=== PATIENT | female | born 1955 | race Caucasian/White ===

== ENCOUNTER → 2017-01-07 | Outpatient (CLI) | payer BC ==
[~2017-01-07] MED LIST: ALPR0.5T3 PO; BUPR15TA PO; IBUP-1114 PO; IMOD2TAB16 PO; LORA10TA2 PO; METF1000 PO; MULT1TAB10 PO
[2017-01-07 10:51] LABS: MEAN CORPUSCULAR HEMOGLOBIN 30.9 pg (27.0-33.0); MEAN CORPUSCULAR HGB CONC 32.6 g/dl (32.0-36.5); MEAN CORPUSCULAR VOLUME 94.6 fl (80.0-96.0); RED CELL DISTRIBUTION WIDTH 12.5 % (11.5-14.5); WHITE BLOOD COUNT 12.4 K/mm3 (4.0-10.0)
[2017-01-07 10:55] LABS: CALCIUM OXALATE CRYSTALS LARGE
[2017-01-07 10:56] LABS: INR 0.82
--- NOTE | 2017-01-07 10:59 | REP ---
Clinical: History of anxiety and diabetes with chest pain . Comparison: None . Technique: PA and lateral. Findings: The mediastinum and cardiac silhouette are normal. The lung chandler are clear and without acute consolidation, effusion, or pneumothorax. The skeletal structures are intact and normal. Impression: 1. No acute cardiopulmonary process. Signed by Asif Yanes MD 01/07/2017 10:50 A
[2017-01-07 11:14] LABS: ALBUMIN 3.7 GM/DL (3.2-5.2); ALBUMIN/GLOBULIN RATIO 1.06 (1.00-1.93); ALKALINE PHOSPHATASE 372 U/L (45-117); ALT/SGPT 32 U/L (12-78); ANION GAP 9 MEQ/L (8-16); AST/SGOT 18 U/L (15-37); BILIRUBIN,TOTAL 0.2 MG/DL (0.2-1.0); BLOOD UREA NITROGEN 17 MG/DL (7-18); CARBON DIOXIDE LEVEL 25 MEQ/L (21-32); CHLORIDE LEVEL 109 MEQ/L (98-107); CREATININE FOR GFR 0.64 MG/DL (0.55-1.02); GLOMERULAR FILTRATION RATE > 60.0 (>45); GLUCOSE, FASTING 111 MG/DL (80-110); POTASSIUM SERUM 4.3 MEQ/L (3.5-5.1); SODIUM LEVEL 143 MEQ/L (136-145); TOTAL PROTEIN 7.2 GM/DL (6.4-8.2)
--- NOTE | 2017-01-07 17:59 | ECGEPIP ---
Stationary ECG Study [facility] Test Date: 2017-01-07 Pat Name: MARY HICKEY Department: Room: - Gender: F Subscription Agent: : [id number] Requested By: Kuldip Vail Order Number: [id number] Reading MD: Stanislav Gamboa Measurements Intervals [place] Rate: 69 P: 19 ME: 167 QRS: -5 QRSD: 120 T: 59 QT: 406 QTc: 438 Interpretive Statements Normal sinus rhythm Isolated PVCs Low limb voltage Nonspecific ST/T-wave abnormalities. No prior tracing for comparison Clinical correlation advised Electronically Signed On 01-07-2017 17:59:14 EST by Stanislav Gamboa
== END ==
LOC: M ADMPAT 09:17
PROVIDERS: ATTEND Orthopaedic Surgery
DX: M16.11 Unilateral primary osteoarthritis, right hip (principal); E11.9 Type 2 diabetes mellitus without complications; F41.9 Anxiety disorder, unspecified; K52.9 Noninfective gastroenteritis and colitis, unspecified

== ENCOUNTER 2017-01-21 06:23 | Inpatient (IN) | payer BC ==
[2017-01-07 10:22] VITALS: BP 138/84
--- NOTE | 2017-01-16 18:07 | HPE ---
DATE OF ADMISSION: 01/21/2017 CHIEF COMPLAINT: Right hip pain. HISTORY OF PRESENT ILLNESS: This is a pleasant 61-year-old female with progressively worsening right hip pain and stiffness. She has failed to improve with conservative treatment. She has elected for surgery for her continued symptoms. She has pain with weightbearing activities and her activities of daily living. X-rays of her hip are notable for advanced osteoarthritis of the right hip joint. She has consented for a right total hip arthroplasty by Dr. Kuldip Vail. Medical optimization was performed by Dr. Regalado. ALLERGIES: No known drug allergies. CURRENT MEDICATIONS: - metformin HCl 500 mg two tablets twice a day - Wellbutrin HCl ER 150 mg one twice a day - loratadine 10 mg once a day - Xanax 0.5 mg as needed - adult multivitamin - calcium plus D 1200 mg - Imodium Advanced 2/125 as needed PAST MEDICAL HISTORY: Includes diabetes and anxiety and colitis. PAST SURGICAL HISTORY: Includes colonoscopies and hysterectomy. SOCIAL HISTORY: This patient is retired. She does smoke and she does drink occasionally. FAMILY HISTORY: Noncontributory. REVIEW OF SYSTEMS: This patient denies chest pain, heart palpitations, cough, wheezing, difficulty breathing and shortness of breath. She denies abdominal pain, nausea, vomiting, diarrhea or constipation. She denies recent upper respiratory infection or urinary tract infection symptoms. She does complain of persistent pain in her right hip and pain with weightbearing activities in the right hip. PHYSICAL EXAMINATION: GENERAL: She is a well-nourished, well-developed, in no acute distress, alert female patient. She walks with a moderate limp favoring the right lower extremity. She is not using assistive devices. VITAL SIGNS: She is 5 feet 3 inches tall, weighs 162 pounds with a temperature of 98.2, blood pressure 128/88, heart rate is 74, respirations of 16. NECK: Supple without adenopathy or jugular venous distension. There were no carotid bruits appreciated upon auscultation. LUNGS: Clear to auscultation without rales or wheeze throughout. HEART: Regular rate and rhythm. ABDOMEN: Bowel sounds were present. EXTREMITIES: Examination of the hip revealed intact skin. She had decreased range of motion with internal and external rotation on exam today secondary to pain and stiffness. The limb is neurovascularly intact. LABORATORY DATA: Chest x-ray showed no acute cardiopulmonary disease processes. EKG showed normal sinus rhythm and 69 beats per minute. Urinalysis showed cloudy appearance, 1+ protein, trace ketones, 1+ bilirubin, trace leukocyte esterase, otherwise within normal limits with a specific gravity of 1.032. Prothrombin 11.4, INR 0.82, glucose 111, BUN 17, creatinine 0.64, sodium 143, potassium 4.3. CBC showed a white count of 12.4, otherwise within normal limits. Sedimentation rate was 26. Urine culture showed no growth and nasal and sinus culture showed normal rajendra. IMPRESSION: Symptomatic osteoarthritis of the right hip. PLAN: Consented for a right total hip arthroplasty by Dr. Kuldip Vail.
[~2017-01-21] VITALS: Ht 160 cm; Wt 73.0 kg
[2017-01-21] VITALS (11 sets, daily range): BP systolic 91–135; BP diastolic 56–74
[2017-01-21] MEDS ORDERED: ceFAZolin SOD 1 GM in D5W MINI-BAG PLUS 50 ML IV ONE (06:45)
[2017-01-21] MEDS ORDERED: LR 1,000 ML IV SCH ×2 (06:45→11:15)
[2017-01-21] MEDS ORDERED: TRANEXAMIC ACID 100 MG/ML 10ML VIAL As Ordered ONE (08:10)
[2017-01-21] MEDS ORDERED: ceFAZolin 1GM INJ (J0690) As Ordered ONE (08:11)
[2017-01-21] MEDS ORDERED: BUPIVACAINE HCL 0.25% 30 ML VIAL As Ordered ONE (08:11)
[2017-01-21] MEDS ORDERED: fentaNYL 100 MCG/2 ML INJECTION (J3010) As Ordered ONE ×2 (08:11→08:54)
[2017-01-21] MEDS ORDERED: MIDAZOLAM INJ 2 MG/2 ML VIAL (J2250) As Ordered ONE (08:54)
[2017-01-21] MEDS ORDERED: ePHEDrine SULFATE 25 MG/5 ML(5MG/ML) SYRINGE As Ordered ONE ×2 (08:54→09:15)
[2017-01-21] MEDS ORDERED: PROPOFOL 500 MG/50 ML VIAL As Ordered ONE (08:54)
[2017-01-21] MEDS ORDERED: PHENYLephrine HCL 500 MCG/5 ML (100MCG/ML) SYRINGE (J2370) As Ordered ONE ×2 (08:55→09:15)
[2017-01-21] MEDS ORDERED: LIDOCAINE 2% INJ 100 MG/5 ML SDV (FOR ANES.) As Ordered ONE (09:15)
[2017-01-21] MEDS ORDERED: ONDANSETRON 4MG/2ML VIAL (J2405) As Ordered ONE (09:21)
[2017-01-21] MEDS: EPINEPHrine INJ 1 MG/ML 1ML VIAL/AMP As Ordered ONE (09:40)
[2017-01-21] MEDS ORDERED: MORPHINE PCA 1MG/ML 100ML CADD As Ordered ONE (10:50)
[2017-01-21] MEDS ORDERED: FLEET ENEMA PR PRN (11:15)
[2017-01-21] MEDS ORDERED: PERCOCET 5MG/325MG TAB PO PRN (11:15)
[2017-01-21] MEDS ORDERED: NALOXONE INJ 0.4 MG/1 ML VIAL (J2310) IV PRN (11:15)
[2017-01-21] MEDS ORDERED: MORPHINE PCA 1MG/ML 100ML CADD IV PRN (11:15)
[2017-01-21] MEDS ORDERED: ONDANSETRON 4MG/2ML VIAL (J2405) IV PRN ×3 (11:15)
[2017-01-21] MEDS ORDERED: PATIENT IS CURRENTLY ON AN ON-Q PAIN BUSTER PAIN RELIEF SYSTEM XX SCH (11:15)
[2017-01-21] MEDS ORDERED: ACETAMINOPHEN TAB 650MG DOSE (2X325MG) PO PRN (11:15)
[2017-01-21] MEDS ORDERED: diphenhydrAMINE INJ 50MG/ML VIAL (J1200) IV PRN (11:15)
[2017-01-21] MEDS ORDERED: EPIDURAL/PCA KEYS XX PRN (11:15)
[2017-01-21] MEDS ORDERED: NALBUPHINE HCL 10 MG/ML AMP (J2300) IV PRN (11:15)
[2017-01-21] MEDS ORDERED: fentaNYL 100 MCG/2 ML INJECTION (J3010) IV PRN (11:15)
[2017-01-21] MEDS ORDERED: HYDROmorphone HCL 1 MG/ML SYRINGE (J1170) IV PRN (11:15)
[2017-01-21] MEDS: LR 1,000 ML IV SCH (12:30)
[2017-01-21] MEDS ORDERED: DEXTROSE 50% 50 ML SYRINGE IV PRN (15:30)
[2017-01-21] MEDS ORDERED: GLUCAGON FOR INJ 1 MG VIAL (J1610) SC PRN (15:30)
[2017-01-21] MEDS ORDERED: GLUCOSE 4 GM CHEW TABLET PO PRN (15:30)
--- NOTE | 2017-01-21 15:50 | CR ---
DATE OF CONSULTATION: 01/21/2017 PRIMARY CARE PROVIDER: NIMA Boo REASON FOR CONSULTATION: Medical management. CONSULTATION REPORT FOR: Orthopedic surgeon, Dr. Kuldip Vail. HISTORY OF PRESENT ILLNESS: The patient is a 61-year-old female with a past medical history significant for severe osteoarthritis of the right hip. The patient complained to have worsening of the hip pain. The patient saw primary care provider, NIMA Boo on 01/14/2017 for the preoperative clearance, and the patient came to [facility] to have a right hip replacement done by Dr. Kuldip Vail on 01/21/2017. No complications before, during, or after the procedure. Hospitalist team was called for medical consultation. ALLERGIES: 1. AUGMENTIN (nausea, vomiting and diarrhea). 2. BIAXIN (nausea, vomiting, and diarrhea). 3. BUSPAR (weight gain). 4. ZOLOFT (diarrhea). PAST MEDICAL HISTORY: 1. Anxiety. 2. Chronic colitis, seen by Dr. Crowder. 3. Type 2 diabetes. 4. Hypertension. 5. Intermetatarsal neuroma. 6. Nicotine dependence. 7. Osteopenia. 8. Benign ovarian mass, status post total hysterectomy in October 2015. 9. Insomnia. 10. Psoriasis. PAST SURGICAL HISTORY: 1. Colonoscopy. 2. Hysterectomy. SOCIAL HISTORY: The patient used to smoke 1-2 pack daily since 18 years old. Denies alcohol use. Denies recreational drug use. REVIEW OF SYSTEMS: GENERAL: Denies any fever or chills. HEENT: Denies any vision changes or auditory changes. CARDIOVASCULAR: Denies any chest pain or palpitations. RESPIRATORY: No cough. No sputum production. GASTROINTESTINAL: No nausea. No vomiting. No diarrhea. MUSCULOSKELETAL: Just had a right hip replacement done. No muscle or joint swelling. NEUROLOGICAL: No numbness. No tingling. OBJECTIVE: VITAL SIGNS: Blood pressure is 99/62, pulse oximetry greater than 90% with two liters nasal oxygen, heart rate is 62. PHYSICAL EXAMINATION: GENERAL: No sign of acute distress, alert and oriented times three. HEENT: Normocephalic, atraumatic. Extraocular motor grossly intact. CARDIOVASCULAR: Positive S1, S2, regular rate. LUNGS: Clear to auscultation bilaterally. ABDOMEN: Soft, nontender, nondistended. Bowel sounds present. No rebound. No guarding. EXTREMITIES: Right hip surgery dressing in place. No lower extremity swelling. No cyanosis. NEUROLOGIC: Sensation to fine touch grossly intact. Muscle strength 5/5. ASSESSMENT AND PLAN: 1. Right hip replacement. Surgery was done on 01/21/2017. We will refer the diet, exercise level, pain control, and anticoagulation to the primary team. 2. Anxiety. Continue bupropion. 3. Diabetes. The patient is on sliding scale. The patient is on a consistent-carbohydrate diet. 4. Hypertension. We will continue to monitor. 5. History of nicotine dependence. 6. History of chronic colitis. 7. Insomnia. 8. Deep vein thrombosis (DVT) prophylaxis. Per primary team. The patient is on thromboembolic-deterrent stockings (TEDS) and sequential compression device. We will defer the management to the primary team.
[2017-01-21] MEDS: ceFAZolin SOD 1 GM in D5W MINI-BAG PLUS 50 ML IV SCH ×2 (16:34→23:55)
[2017-01-21] MEDS ORDERED: WARFARIN SOD 5 MG TAB PO SCH (17:00)
[2017-01-21] MEDS: HumaLOG INSULIN (NovoLOG) PER UNIT SC SCH ×2 (17:36→20:36)
[2017-01-21] MEDS: buPROPion **SR TABLET** (ZYBAN) 150MG PO SCH (20:36)
[2017-01-22] MEDS: LR 1,000 ML IV SCH (00:35)
[2017-01-22 02:00] VITALS: BP 119/62
[2017-01-22 06:00] VITALS: BP 112/73
[2017-01-22] MEDS ORDERED: ONDANSETRON 4 MG TAB (S0181) PO PRN (06:45)
[2017-01-22 06:48] LABS: MEAN CORPUSCULAR HEMOGLOBIN 30.5 pg (27.0-33.0); MEAN CORPUSCULAR HGB CONC 32.3 g/dl (32.0-36.5); MEAN CORPUSCULAR VOLUME 94.4 fl (80.0-96.0); RED CELL DISTRIBUTION WIDTH 12.5 % (11.5-14.5); WHITE BLOOD COUNT 12.1 K/mm3 (4.0-10.0)
[2017-01-22 07:08] LABS: INR 1.12
[2017-01-22 07:13] LABS: ANION GAP 10 MEQ/L (8-16); BLOOD UREA NITROGEN 13 MG/DL (7-18); CALCIUM LEVEL 8.4 MG/DL (8.8-10.2); CARBON DIOXIDE LEVEL 28 MEQ/L (21-32); CHLORIDE LEVEL 101 MEQ/L (98-107); CREATININE FOR GFR 0.59 MG/DL (0.55-1.02); GLOMERULAR FILTRATION RATE > 60.0 (>45); GLUCOSE, FASTING 113 MG/DL (80-110); POTASSIUM SERUM 3.7 MEQ/L (3.5-5.1); SODIUM LEVEL 139 MEQ/L (136-145)
[2017-01-22] MEDS: HumaLOG INSULIN (NovoLOG) PER UNIT SC SCH ×4 (07:46→20:57)
[2017-01-22] MEDS: MOM 30ML SUSPENSION UDC PO SCH ×2 (07:47→08:10)
[2017-01-22] MEDS: MIRALAX *UNIT DOSE* 17GM PACKET PO SCH ×2 (07:47→08:11)
[2017-01-22] MEDS: buPROPion **SR TABLET** (ZYBAN) 150MG PO SCH ×2 (07:47→20:56)
[2017-01-22] MEDS: PERCOCET 5MG/325MG TAB PO PRN ×4 (07:47→20:57)
[2017-01-22] MEDS: SENOKOT S TAB PO SCH ×2 (07:48→20:56)
--- NOTE | 2017-01-22 09:48 | REP ---
RIGHT HIP, TWO VIEWS: HISTORY: Hip replacement. The patient is status post right hip arthroplasty. There is no acute fracture or dislocation. A small amount of air and surgical neal are present in the overlying tissue. IMPRESSION: The patient is status post right hip arthroplasty. There is anatomic alignment. Signed by Misha Rushing MD 01/22/2017 09:49 A
--- NOTE | 2017-01-22 10:14 | RO ---
DATE OF PROCEDURE: 01/21/2017 PREOPERATIVE DIAGNOSIS: Right hip osteoarthritis, advanced. POSTOPERATIVE DIAGNOSIS: Right hip osteoarthritis, advanced. PROCEDURE: Right total hip arthroplasty using a Jackson size 6 standard, 1.5, 36 ball, and a 52 acetabulum. SURGEON: Dr. Kuldip Vail ADMINISTRATIVE TECHNICIAN: Doug Quiñonez ANESTHESIA: Spinal. ESTIMATED BLOOD LOSS: 100. COMPLICATIONS: None. INDICATIONS: 61-year-old woman who has had gradually worsening right hip pain. It was to the point where she had failed conservative management and really wished to go ahead with a hip replacement. She understood the nature of the procedure and the risks of bleeding, infection, damage to nerves, vessels, persistent pain, wear, loosening, dislocation, leg length inequality, blood clots, medical problems, among others. A preop medical clearance was obtained. PROCEDURE: The patient was taken to the operating room and placed supine position after spinal anesthesia was induced. She was then turned in the left lateral decubitus position on a [place] positioner in the usual fashion. All areas were padded appropriately. The right hip was prepped and draped in the usual sterile fashion. A time-out was performed. I then created a longitudinal incision over the lateral aspect of the hip. Sharp dissection was carried down through subcutaneous tissue until the fascia was encountered. This was incised longitudinally. I controlled hemostasis with the cautery. The fascia was incised. I then divided the anterior 40% the abductor off the anterior aspect of the femur as we gradually externally rotated the femur. I divided the labrum and freed it up down to the lesser trochanter. I was then able to dislocate with the law office assistant's help and a hook in the usual fashion without difficulty. I then used the canal initiating reamer, followed by the canal finding reamer, the lateralizing reamer, and then was able to ream up to a size 6, which seemed to be an appropriate fit. The acetabulum was then prepared. I removed soft tissue from around the acetabulum and then reamed and got up to a size 51, which had good bleeding bone and a good fit. I was unable to go any larger due to risk of perforating the anterior wall, but a good concentric reaming and good bone was noted. I then impacted in a 52 cup in the appropriate amount of horizontal tilt and anteversion. An excellent fit was noted. The apex hole eliminator was placed. We made sure that the cup was seated. I then placed a 36 x 52 AltrX liner and impacted this in place after irrigation. We had irrigated multiple times prior to this. I then prepared the femoral stem. I removed excess bone from the proximal femur and gradually broached up to a size 6, which had a good fit and a good feel to it. I then trial reduced it with the -2 and the +1.5. Excellent stability was noted really and improved with the +1.5. There was minimal shuck with the 1.5. There were 3 or 4 mm of shuck with the -2 and I was concerned with the -2 with some reduced offset that there could potentially be some impingement of the neck, so I selected the 1.5. She had excellent flexion and internal rotation, excellent extension and external rotation. We then irrigated. I impacted the stem in the usual fashion and an excellent fit was noted. We again trialed the two different neck lengths and I was satisfied with the 1.5. Soft tissue tension was appropriate. The actual 1.5, 36 ball was then impacted on the dry Brito taper and impacted until it was well seated. Then reduced the hip with the law office assistant's help. Put the hip through a range of motion. Again, was very satisfied with the stability, soft tissue tension and range of motion. Irrigated copiously. Repaired the minimus with #1 Vicryl suture, the abductor with #1 Vicryl suture, with stitches being placed through the bone in a [id number] fashion. Excellent repair was noted. Repaired the fascia cathie with #1 Vicryl suture and then we used two of the Stratafix single arm stitches starting at the midportion and working our way in opposite directions. The law office assistant closed distally and I closed proximally, locking the sutures in the appropriate fashion. A watertight closure was noted. I irrigated again. Closed the subcutaneous with #2-0 Vicryl with the law office assistant's help. Closed the skin with neal. I was able to insert the PainBuster catheter just anterior to the incision down to the femoral neck and inserted the catheter in without difficulty. This was attached to the skin in the usual fashion. Sterile dressing was applied. She was taken to recovery room in stable condition. There were no known complications. The plan be routine postoperative for a hip replacement. The law office assistant was instrumental in dislocating and reducing the hip and assisting with closure and providing exposure.
[2017-01-22 10:51] VITALS: BP 106/67
[2017-01-22] MEDS ORDERED: CEPACOL LOZENGE PO PRN (11:30)
[2017-01-22] MEDS ORDERED: LORATADINE 10 MG TAB PO ONE (11:30)
[2017-01-22] MEDS ORDERED: CEPACOL LOZENGE PO ONE (11:30)
[2017-01-22 14:31] VITALS: BP 118/73
[2017-01-22] MEDS ORDERED: WARFARIN SOD 5 MG TAB PO ONE (17:00)
--- NOTE | 2017-01-22 18:54 | IPN ---
DATE: 01/22/2017 Patient seen and examined at the bedside. Chart has been reviewed. Patient complains of sore throat this morning, dry mouth, and allergy symptoms, requesting her Claritin to be resumed. No other issues overnight. No complaints of pain, shortness of breath, chest pain, pressure, tightness, nausea, vomiting, epigastric pain, diaphoresis, fever, chills, dysuria, urgency, frequency. Overnight temperature 99.3, pulse 73, respiratory rate 20, blood pressure 106/67 , 91% on 2 liters nasal cannula. Generally, awake, alert, oriented times three, answering questions appropriately. No respiratory distress, cyanosis. Speaks in full sentences. No jugular venous distention. Anicteric sclerae. Pupils round and reactive to light and accommodation. Extraocular muscles are intact. Lungs are clear to auscultation. No wheezes, rales, or rhonchi. Abdomen is soft, nontender , nondistended. Positive bowel sounds. Extremities: Status post surgical changes on the right hip. No muscle or joint swelling. No lower extremity edema or cyanosis. Skin: Warm, pink in color, warm to touch. January 22 CBC: White count 12, hemoglobin 11, hematocrit 34, platelets 260. Sodium 139, potassium 3.7, chloride 101, bicarbonate 28, BUN 13, creatinine 0.59, glucose of 113. ASSESSMENT AND PLAN: This is a 61-year-old female with history of anxiety, chronic colitis, type 2 diabetes, hypertension, intermetatarsal neuroma, nicotine dependence, osteopenia , benign ovarian mass, status post hysterectomy October 2015, insomnia, psoriasis , admitted to orthopedic surgery on 01/21/2017 for right hip replacement. Patient has had no complications. Postoperatively complains of some sore throat and dry mouth. IMPRESSION: 1. Right hip osteoarthritis, status post surgical intervention on 01/21/3017. Defer to primary team regarding activity level, pain control, anticoagulation. 2. Anxiety. Continue bupropion. 3. Type 2 diabetes, on sliding scale, consistent-carbohydrate diet. 4. Hypertension, stable. Continue to monitor. 5. Nicotine dependence, stable. 6. Chronic colitis. No acute issues. 7. Insomnia, chronic. 8. Sore throat and dry mouth. Symptomatic care with resuming patient's Claritin and Cepacol as needed. MTDD
[2017-01-22 22:00] VITALS: BP 130/69
[2017-01-23] MEDS: PERCOCET 5MG/325MG TAB PO PRN ×4 (02:03→10:55)
[2017-01-23 06:00] VITALS: BP 120/70
[2017-01-23 06:44] LABS: MEAN CORPUSCULAR HEMOGLOBIN 30.7 pg (27.0-33.0); MEAN CORPUSCULAR HGB CONC 32.4 g/dl (32.0-36.5); MEAN CORPUSCULAR VOLUME 94.7 fl (80.0-96.0); RED CELL DISTRIBUTION WIDTH 12.6 % (11.5-14.5); WHITE BLOOD COUNT 15.2 K/mm3 (4.0-10.0)
[2017-01-23 06:45] LABS: INR 1.54
[2017-01-23 06:56] LABS: ANION GAP 11 MEQ/L (8-16); BLOOD UREA NITROGEN 11 MG/DL (7-18); CALCIUM LEVEL 8.5 MG/DL (8.8-10.2); CARBON DIOXIDE LEVEL 28 MEQ/L (21-32); CHLORIDE LEVEL 99 MEQ/L (98-107); CREATININE FOR GFR 0.59 MG/DL (0.55-1.02); GLOMERULAR FILTRATION RATE > 60.0 (>45); GLUCOSE, FASTING 121 MG/DL (80-110); POTASSIUM SERUM 3.5 MEQ/L (3.5-5.1); SODIUM LEVEL 138 MEQ/L (136-145)
[2017-01-23] MEDS: MOM 30ML SUSPENSION UDC PO SCH (07:59)
[2017-01-23] MEDS: buPROPion **SR TABLET** (ZYBAN) 150MG PO SCH (08:00)
[2017-01-23] MEDS: HumaLOG INSULIN (NovoLOG) PER UNIT SC SCH (08:00)
[2017-01-23] MEDS: MIRALAX *UNIT DOSE* 17GM PACKET PO SCH (08:01)
[2017-01-23] MEDS: SENOKOT S TAB PO SCH (08:01)
[2017-01-23] MEDS ORDERED: PERC5TAB6 PO (08:32)
[2017-01-23] MEDS ORDERED: COUM2.5T11 PO (08:32)
[2017-01-23] MEDS ORDERED: LORATADINE 10 MG TAB PO SCH (09:00)
[2017-01-23] MEDS ORDERED: WARFARIN SOD 5 MG TAB PO ONE (17:00)
--- NOTE | 2017-01-25 08:33 | DSES ---
DATE OF ADMISSION: 01/21/2017 DATE OF DISCHARGE: 01/23/2017 ADMISSION DIAGNOSIS: Right hip osteoarthritis. DISCHARGE DIAGNOSIS: Status post right total hip arthroplasty. HISTORY OF PRESENT ILLNESS: This is a pleasant female with continuing symptomatic right hip osteoarthritis. She consented for a right total hip arthroplasty per Dr. Kuldip Vail. Medical optimization was achieved per Dr. Regalado. X-rays were consistent with advanced osteoarthritis. OPERATION PERFORMED: Right total hip arthroplasty. HOSPITAL COURSE: The patient uneventfully underwent a right total hip arthroplasty under spinal anesthesia and was returned to recovery comfortable. Our hospital team discharged the patient on 01/23/2017 with the following instructions. Weightbearing as tolerated about the right lower extremity with a walker. Diet is regular. Percocet as needed (p.r.n.) pain. Coumadin and thromboembolic deterrent (LICO) stockings times 30 days. Optifoam dressing change in 4 days time. Followup in office 12-14 days for wound check and staple removal. She is encouraged to contact our office sooner with increased pain, redness, drainage, numbness, tingling down the lower extremity, fever greater than 101, or further concerns.
== END 2017-01-23 10:45 | disposition home health service (06) | DRG 301 ==
LOC: M OR 06:23 → M MS5PR 11:40
PROVIDERS: ADMIT Orthopaedic Surgery; ATTEND Orthopaedic Surgery
PROC: 0SR902A Replacement of Right Hip Joint with Metal on Polyethylene Synthetic Substitute, Uncemented, Open Approach (ICD-10-PCS; principal; 2017-01-21 08:10)
DX: M16.11 Unilateral primary osteoarthritis, right hip (principal); I10 Essential (primary) hypertension; E11.9 Type 2 diabetes mellitus without complications; F41.9 Anxiety disorder, unspecified; G47.00 Insomnia, unspecified; J02.9 Acute pharyngitis, unspecified; K52.9 Noninfective gastroenteritis and colitis, unspecified; M81.0 Age-related osteoporosis without current pathological fracture; Z79.84 Long term (current) use of oral hypoglycemic drugs; Z90.710 Acquired absence of both cervix and uterus; Z88.1 Allergy status to other antibiotic agents; Z88.8 Allergy status to other drugs, medicaments and biological substances; Z87.891 Personal history of nicotine dependence; Z79.899 Other long term (current) drug therapy

== ENCOUNTER → 2018-08-06 | Outpatient (CLI) | payer BC ==
[2018-08-06 13:28] LABS: BASO # 0.1 10^3/uL (0.0-0.2); BASO % 0.5 % (0.0-1.0); EOS # 0.2 10^3/uL (0.0-0.50); EOS % 1.5 % (0.0-3.0); HEMATOCRIT 41.3 % (36.0-47.0); HEMOGLOBIN 13.5 g/dl (12.0-15.5); IMMATURE GRANULOCYTE % 0.5 % (0-3.0); LYMPH # 3.4 10^3/uL (1.5-4.5); LYMPH % 27.7 % (24.0-44.0); MEAN CORPUSCULAR HEMOGLOBIN 30.1 pg (27.0-33.0); MEAN CORPUSCULAR HGB CONC 32.7 g/dl (32.0-36.5); MEAN CORPUSCULAR VOLUME 92.2 fl (80.0-96.0); MONO # 0.7 10^3/uL (0.0-0.8); MONO % 5.9 % (0.0-5.0); NEUTROPHILS # 7.9 10^3/uL (1.8-7.7); NEUTROPHILS % 63.9 % (36.0-66.0); PLATELET COUNT, AUTOMATED 354 10^3/uL (150-450); RED BLOOD COUNT 4.48 10^6/uL (4.00-5.40); RED CELL DISTRIBUTION WIDTH 13.6 % (11.5-14.5); WHITE BLOOD COUNT 12.4 10^3/uL (4.0-10.0)
[2018-08-06 15:01] LABS: ALBUMIN 3.7 GM/DL (3.2-5.2); ALBUMIN/GLOBULIN RATIO 1.06 (1.00-1.93); ALKALINE PHOSPHATASE 324 U/L (45-117); ALT/SGPT 20 U/L (12-78); ANION GAP 8 MEQ/L (8-16); AST/SGOT 11 U/L (7-37); BILIRUBIN,TOTAL 0.2 MG/DL (0.2-1.0); BLOOD UREA NITROGEN 15 MG/DL (7-18); C REACTIVE PROTEIN QUANTITATIV 2.55 MG/DL (0.00-0.30); CALCIUM LEVEL 8.9 MG/DL (8.8-10.2); CARBON DIOXIDE LEVEL 27 MEQ/L (21-32); CHLORIDE LEVEL 106 MEQ/L (98-107); CREATININE FOR GFR 0.54 MG/DL (0.55-1.30); FREE T4 0.97 NG/DL (0.76-1.46); GLOMERULAR FILTRATION RATE > 60.0 (>45); GLUCOSE, FASTING 92 MG/DL (70-100); POTASSIUM SERUM 3.9 MEQ/L (3.5-5.1); SODIUM LEVEL 141 MEQ/L (136-145); TOTAL PROTEIN 7.2 GM/DL (6.4-8.2)
[2018-08-08 00:07] LABS: TISSUE TRANSGLUTAMINASE IgA <2 U/mL (0-3)
== END ==
LOC: M LAB 12:38
DX: R19.7 Diarrhea, unspecified (principal)
CPT/HCPCS: 84443

== ENCOUNTER 2018-09-19 07:37 | Day surgery (SDC) | payer MEDICARE, BC ==
[~2018-09-19 07:37] MED LIST changes: -ALPR0.5T3 PO; -BUPR15TA PO; -IBUP-1114 PO; -IMOD2TAB16 PO; +LIDOCAINE 2% INJ 100 MG/5 ML SDV (FOR ANES.) As Ordered; -LORA10TA2 PO; -METF1000 PO; -MULT1TAB10 PO; +PROPOFOL 200 MG/20 ML VIAL As Ordered
[2018-09-19] MEDS: NS 1,000 ML IV (08:08)
[2018-09-19] MEDS ORDERED: PROPOFOL 200 MG/20 ML VIAL As Ordered (09:55)
== END 2018-09-19 10:07 | disposition home or self-care (01) ==
LOC: M OPP 07:37
DX: K63.89 Other specified diseases of intestine (principal); K52.9 Noninfective gastroenteritis and colitis, unspecified; D12.5 Benign neoplasm of sigmoid colon; M12.9 Arthropathy, unspecified; F41.9 Anxiety disorder, unspecified; L40.9 Psoriasis, unspecified; F17.210 Nicotine dependence, cigarettes, uncomplicated; E11.9 Type 2 diabetes mellitus without complications; Z79.899 Other long term (current) drug therapy; Z88.0 Allergy status to penicillin; Z88.8 Allergy status to other drugs, medicaments and biological substances; Z90.710 Acquired absence of both cervix and uterus; Z78.0 Asymptomatic menopausal state; Z96.641 Presence of right artificial hip joint
CPT/HCPCS: 45385